=== PATIENT | male | born 1955 | race Caucasian/White ===

== ENCOUNTER 2019-08-26 14:41 | Emergency (ER) | payer MEDICARE ==
[~2019-08-26] VITALS: Ht 175.3 cm; Wt 81.8 kg
[2019-08-26 15:03] VITALS: BP 135/85
[2019-08-26] MEDS ORDERED: MUPI22OI30 TOP (16:35)
--- NOTE | 2019-08-26 17:41 | NUR ---
PT. WAS FOUND IN THE WAITING ROOM. RX AND INSTRUCTIONS GIVEN TO HIM AGAIN.
== END 2019-08-26 17:08 | disposition home or self-care (01) ==
LOC: ER 14:42
DX: L98.499 Non-pressure chronic ulcer of skin of other sites with unspecified severity (principal); R22.0 Localized swelling, mass and lump, head; Z79.2 Long term (current) use of antibiotics
CPT/HCPCS: 99283